=== PATIENT | male | born 1995 | race Caucasian/White ===

== ENCOUNTER 2024-12-16 15:10 | Emergency (ER) | payer OTHER, SELFPAY ==
--- NOTE | ~2024-12-16 | XR_ITS ---
CHEST RADIOGRAPH, PA AND LATERAL CLINICAL HISTORY: cough/sob x1.5 weeks . COMPARISON: 12/12/2023 TECHNIQUE: PA and lateral views of the chest. FINDINGS The cardiomediastinal silhouette is unremarkable. The lungs are clear. Visualized osseous structures and soft tissues are unremarkable. IMPRESSION: No focal infiltrate or effusion. Reviewed, dictated and finalized at location A. APY AIDE
--- NOTE | 2024-12-16 15:13 | ED_ITS ---
HPI - URI/Sore Throat General Chief Complaint: Upper Respiratory Infection Stated Complaint: COUGH Time Seen by Provider: 12/16/24 15:17 Source: patient Mode of arrival: ambulatory Limitations: no limitations History of Present Illness HPI Narrative: Aminata is a 28-year-old male patient presenting to the clinic today with complaints of a cough and some shortness of breath x1 0.5 weeks. He reports he had fever, chills, body aches initially with the symptoms however that has all subsided but is having a lingering cough and periods of shortness of breath with activity. Denies any chest pain. Cough is nonproductive at this time MD elicited complaint: cough and other (Shortness of breath on exertion) Related Data Allergies Allergy/AdvReac Type Severity Reaction Status Date / Time codeine Allergy Hives Verified 12/16/24 15:18 vancomycin Allergy Hives Verified 12/16/24 15:18 Review of Systems Review of Systems: Pertinent positives per HPI. Patient denies any fever, chills, rash, headache, visual changes, dizziness, chest pain, palpitations, nausea, vomiting, diarrhea, constipation, abdominal pain, or any urinary issues. 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 There is no relevant family history pertinent to the patient complaint. Exam Narrative: General: Well-developed, well nourished, in no apparent distress Head: Normocephalic, atraumatic Eyes: Pupils equally round and reactive to light bilaterally, EOM intact, sclera and conjunctive clear, no discharge, lids normal Ears: TMs intact and clear, ear canals clear, no drainage, grossly hearing normal. Nose: Nares patent, no discharge, no inflammation, no sinus tenderness. Mouth: Oral pharynx without lesions or masses, good dentition, MMM. Neck: Supple, trachea midline, no enlargement of anterior or posterior cervical nodes, no thyroid masses or goiter palpable. Cardio: Regular rate and rhythm, s1 and s2 normal, no murmur appreciated. Resp: Lower lobes diminished otherwise clear, no rhonchi, rales, wheezing or rubs Course Course Emergency Course: Portions of this record may have been created with voice recognition software. Level of Care: Express Care Visit Vital Signs Vital signs: Vital Signs Temperature 36.8 C 12/16/24 15:19 Pulse Rate 97 12/16/24 15:19 Respiratory Rate 16 12/16/24 15:19 Blood Pressure 152/93 H 12/16/24 15:19 Pulse Oximetry 99 12/16/24 15:19 Temperature 36.8 C 12/16/24 15:19 Pulse Rate 97 12/16/24 15:19 Respiratory Rate 16 12/16/24 15:19 Blood Pressure 152/93 H 12/16/24 15:19 Pulse Oximetry 99 12/16/24 15:19 Oxygen Delivery Room Air 12/16/24 15:33 Vital signs reviewed MDM - URI/Sore Throat MDM Narrative Medical decision making narrative: At the time of visit patient is resting comfortably on the exam table. Patient appears to be nontoxic. Diagnostics: Chest x-ray was performed and is negative for any acute cardiopulmonary process. Plan: I suspect patient has postviral cough. Will send in prescription for albuterol inhaler and prednisone. Supportive measures were discussed with the patient and they voiced understanding discharge instructions and agrees to treatment plan. Return precautions reviewed Differential Diagnosis Differential diagnosis: Likely upper respiratory infection, otitis media, sinusitis, viral infection, bronchitis, influenza, pharyngitis and other (COVID) Imaging Data Radiologist's impression: ITS Impressions Chest X-Ray 12/16/24 15:43 IMPRESSION: No focal infiltrate or effusion. Discharge Plan Discharge Clinical Impression: Post-viral cough syndrome Patient Disposition: Home, Self-Care Condition: Stable Instructions: Antibiotic Form, Acute Cough (ED) Additional Instructions: Chest x-rays negative for any acute cardiopulmonary process. Take prescription medications only as prescribed-albuterol inhaler and prednisone Increase fluids and stay well hydrated Tylenol/motrin for pain/fever Flonase and OTC antihistamines as directed Vicks vapor rub to open sinuses Sinus rinses for congestion Cepacol spray, cough drops, throat lozenges, warm tea with honey/lemon, gargle salt water to soothe throat BRAT diet for diarrhea Clear liquids x 24 hours then advance as tolerated for nausea/vomiting Go to the ED if you develop a worsening in your condition- high fever not controlled by Tylenol or Motrin, dehydration, weakness, lethargy, shortness of breath, or chest pain. Follow up with your PCP in 3-5 days if symptoms persist. Patient Language: Citizen Of [place] Prescriptions: New prednisone 20 mg tablet 40 mg PO DAILY 5 Days Qty: 10 0RF albuterol sulfate 90 mcg/actuation HFA aerosol inhaler 2 puff inhalation Q4-6H PRN (Reason: shortness of breath or wheezing) 30 Days Qty: 8.5 0RF Follow-up/Referrals: PHYSICIAN,JUVENILE JUSTICE SPECIALIST [Primary Care Provider] - Time of Disposition: 15:58 Quality NIHSS Nursing Documentation ED NIHSS nursing documentation: reviewed/agree
[2024-12-16 15:19] VITALS: BP 152/93; PULSE 97; RESP 16; TEMP 36.8; O2SAT 99
== END 2024-12-16 16:07 | disposition home or self-care (01) ==
PROVIDERS: Emergency Provider Nurse Practitioner Family
DX: R05.8 Other specified cough (principal)
CPT/HCPCS: 71046; 99213; G0463

== ENCOUNTER 2025-01-04 14:37 | Emergency (ER) | payer OTHER, SELFPAY ==
--- NOTE | 2025-01-04 14:42 | ED_ITS ---
HPI - Neck Pain/Injury General Chief Complaint: Neck Pain/Injury Stated Complaint: Neck Pain Time Seen by Provider: 01/04/25 14:43 Source: patient Mode of arrival: ambulatory Limitations: no limitations History of Present Illness HPI Narrative: Aminata is a 29-year-old male patient presenting to the clinic today with complaints of right-sided neck pain x2 days. He reports he woke up with the right-sided neck pain 2 days ago. Is having pain with turning his head side to side as well as hyper extending and flexing the neck. Denies any known injury. Feels as though the muscle is tight. He denies any radiation of pain down the right arm Related Data Allergies Allergy/AdvReac Type Severity Reaction Status Date / Time codeine Allergy Hives Verified 01/04/25 14:44 vancomycin Allergy Hives Verified 01/04/25 14:44 Review of Systems Review of Systems: Pertinent positives per HPI. Patient denies any fever, chills, rash, headache, visual changes, dizziness, cough, shortness of breath, chest pain, palpitations, nausea, vomiting, diarrhea, constipation, abdominal pain, or any urinary issues. 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 There is no relevant family history pertinent to the patient complaint. Exam Narrative: General: Well-developed, well nourished, in no apparent distress Head: Normocephalic, atraumatic. Cardio: Regular rate and rhythm, s1 and s2 normal, no murmur appreciated. Resp: Clear to auscultation bilaterally, no rhonchi, rales, wheezing or rubs. Musculoskeletal: No deformity, tender to palpation over the right trapezius portion of the neck, pain with turning head side to side against resistance, limited range of motion of the neck due to pain, muscle strength strong and equal, peripheral pulse strong, no edema, no cyanosis, normal gait and station Course Course Emergency Course: Portions of this record may have been created with voice recognition software. Level of Care: Express Care Visit Vital Signs Vital signs: Vital Signs Temperature 36.9 C 01/04/25 14:43 Pulse Rate 89 01/04/25 14:43 Respiratory Rate 18 01/04/25 14:43 Blood Pressure 143/98 H 01/04/25 14:43 Pulse Oximetry 100 01/04/25 14:43 Oxygen Delivery Room Air 01/04/25 14:43 Temperature 36.9 C 01/04/25 14:43 Pulse Rate 89 01/04/25 14:43 Respiratory Rate 18 01/04/25 14:43 Blood Pressure 143/98 H 01/04/25 14:43 Pulse Oximetry 100 01/04/25 14:43 Oxygen Delivery Room Air 01/04/25 14:43 Vital signs reviewed MDM - Neck Pain/Injury MDM Narrative Medical decision making narrative: At the time of visit patient is resting comfortably on the exam table. Patient appears to be nontoxic. Plan: I suspect patient has a right cervical muscle strain. Prescription for Flexeril and Medrol Dosepak was sent to the pharmacy. Supportive measures were discussed with the patient and they voiced understanding discharge instructions and agrees to treatment plan. Return precautions reviewed Differential Diagnosis Differential diagnosis: Likely disc disorder of cervical region, whiplash injury to neck, closed subluxation of cervical spine, fracture of cervical spine without lesion of spinal cord, cervical radiculopathy, vertebral artery dissection, torticollis, cervical spondylosis and strain of neck muscle Discharge Plan Discharge Clinical Impression: Strain of neck muscle Qualifiers: Encounter type: initial encounter Qualified Code(s): S16.1XXA - Strain of muscle, fascia and tendon at neck level, initial encounter Patient Disposition: Home, Self-Care Condition: Stable Instructions: Antibiotic Form, Neck Pain (ED) Additional Instructions: Take any prescription medication only as prescribed-cyclobenzaprine and Medrol Dosepak Be mindful of sedation precautions given to you if taking a muscle relaxer. May use heat or ice to the affected area Consider massage or chiropractor adjustment if this was discussed with provider May use blue emu, lidocaine patches, or asper cream to affected area- do not apply heat or ice directly over cream- can cause burn. Complete appropriate back stretching exercises. Follow up with your PCP in 3-5 days if symptom persist. Patient Language: Guamanian Prescriptions: New methylprednisolone [Medrol (Femi)] 4 mg tablets,dose pack See Rx Instructions PO .COMPLEX Qty: 21 0RF Rx Instructions: orally per package directions cyclobenzaprine 10 mg tablet 10 mg PO Q8H PRN (Reason: muscle spasm) 7 Days Qty: 21 0RF No Action albuterol sulfate 90 mcg/actuation HFA aerosol inhaler 2 puff inhalation Q4-6H PRN (Reason: shortness of breath or wheezing) 30 Days Qty: 8.5 0RF Follow-up/Referrals: PHYSICIAN,SALES CLERK FOOD [Primary Care Provider] - Stand Alone Forms: Work/School Release IP Time of Disposition: 14:54 Quality NIHSS Nursing Documentation ED NIHSS nursing documentation: reviewed/agree
[2025-01-04 14:43] VITALS: BP 143/98; PULSE 89; RESP 18; TEMP 36.9; O2SAT 100
== END 2025-01-04 15:05 | disposition home or self-care (01) ==
PROVIDERS: Emergency Provider Nurse Practitioner Family
DX: S16.1XXA Strain of muscle, fascia and tendon at neck level, initial encounter (principal); X58.XXXA Exposure to other specified factors, initial encounter
CPT/HCPCS: 99213; G0463

== ENCOUNTER 2025-01-05 04:17 | Emergency (ER) | payer OTHER, SELFPAY ==
[2025-01-05 04:19] VITALS: BP 153/89; PULSE 98; RESP 18; TEMP 36.6; O2SAT 98
--- OUTSIDE RECORDS SUMMARY | 2025-01-05 04:20 | XMS_ITS | Referral Summary ---
Author Organization [facility] Address [address] [place] [address] Care Team Providers Care Last Inserter Name Role Phone Unavailable Primary Care Provider Unavailabl e Source Comments [facility],non-owned Affiliates and Associated Physician Practices is amultiple site organization consisting of ambulatory clinics and hospital sitesin [place], [place], [place] and [place]. This disclosure is being madepursuant to the Care Everywhere program and may not contain all information available regarding this patient. Last updated 18.[facility] [employer] Allergies Active Allergy Reactions Criticality Noted Date Comments Codeine Urticaria,Swelling Medium 05/06/2023 Vancomycin Urticaria,Swelling Medium 05/06/2023 Medications * Be aware that medications may not be up to date on this document. Alwaysverify current medications with the patient. Medication Sig Dispensed Refills Start Date End Date Status albuterol HFA (ProAir HFA) 108 (90 Base) MCG/ACT inhaler Inhale 2 (two) puffs by mouth every 4 hours as needed 8.5 g 12/02/2023 Active Social History Tobacco Use Types Packs/Day Years Used Date Smoking Tobacco: Never Assessed Sex and Gender Information Value Date Recorded Sex Assigned at Not on file Gender Identity Not on file Sexual Orientation Not on file Last Filed Vital Signs Vital Sign Reading Time Taken Comments Blood Pressure 132/88 12/02/2023 10:06 AM PHOTOGRAPHER NEWS Pulse 88 12/02/2023 10:06 AM PHOTOGRAPHER NEWS Temperature 36.4 C (97.5 F) 12/02/2023 10:06 AM PHOTOGRAPHER NEWS Respiratory Rate 18 12/02/2023 10:06 AM PHOTOGRAPHER NEWS Oxygen Saturation 98% 12/02/2023 10:06 AM PHOTOGRAPHER NEWS Inhaled Oxygen Concentration - - Weight 119.7 kg (264 lb) 12/02/2023 10:06 AM PHOTOGRAPHER NEWS Height - - Body Mass Index - - Plan of Treatment Not on file
--- OUTSIDE RECORDS SUMMARY | 2025-01-05 04:20 | XMS_ITS | Clinical Summary ---
Author Organization [facility] [employer] Address [address] [place] [address] Care Team Providers Care Procedure Rn Name Role Phone Unavailable Primary Care Provider Unavailabl e Source Comments [facility],non-owned Affiliates and Associated Physician Practices is amultiple site organization consisting of ambulatory clinics and hospital sitesin [place], [place], [place] and [place]. This disclosure is being madepursuant to the Care Everywhere program and may not contain all information available regarding this patient. Last updated 18.[facility] [employer] Allergies Active Allergy Reactions Criticality Noted Date [...] Comments Blood Pressure 132/88 12/02/2023 10:06 AM HEAD CHAR FILTER TANK TENDER Pulse 88 12/02/2023 10:06 AM HEAD CHAR FILTER TANK TENDER Temperature 36.4 C (97.5 F) 12/02/2023 10:06 AM HEAD CHAR FILTER TANK TENDER Respiratory Rate 18 12/02/2023 10:06 AM HEAD CHAR FILTER TANK TENDER Oxygen Saturation 98% 12/02/2023 10:06 AM HEAD CHAR FILTER TANK TENDER Inhaled Oxygen Concentration - - Weight 119.7 kg (264 lb) 12/02/2023 10:06 AM HEAD CHAR FILTER TANK TENDER Height - - Body Mass Index - - Plan of Treatment Health Maintenance Due Date Last Done Comments HIV SCREENING 2009 HEPATITIS C SCREENING 12/14/2012 DTAP/TDAP/TD VACCINES (1 - Tdap) 2013 HEPATITIS B VACCINE (1 of 3 - 19+ 3-dose series) 2013 COVID-19 VACCINE (2 - 2023-2 5 season) 2024 08/13/2022 INFLUENZA VACCINE (#1) 2024 08/24/2022 DEPRESSION SCREENING 11/18/2024 ZOSTER VACCINE (1 of 2) 2044 HIB VACCINE Aged Out No longer eligi ble based on patient's age to complete this topic HPV VACCINE Aged Out No longer eligi ble based on patient's age to complete this topic MENINGOCOCCAL (Group B) VACCINE Aged Out No longer eligible based on patient's age to complete this topic MENINGOCOCCAL VACCINE Aged Out No brenda janeen eligible based on patient's age to complete this topic PNEUMOCOCCAL VACCINE Aged Out No long er eligible based on patient's age to complete this topic
--- OUTSIDE RECORDS SUMMARY | 2025-01-05 04:20 | XMS_ITS | Patient Health Summary ---
Author Organization [facility] Address [address] [place] [address] Care Team Providers Care Toddler Guide Name Role Phone Unavailable Primary Care Provider Unavailabl e Note from [facility],non-owned Affiliates and Associated Physician Practices is amultiple site organization consisting of ambulatory clinics and hospital sitesin [place], [place], [place] and [place]. This disclosure is being madepursuant to the Care Everywhere program and may not contain all information available regarding this patient. Last updated 18.[facility] Allergies * Codeine(Urticaria,Swelling) -Medium Criticality * Vancomycin(Urticaria,Swelling) -Medium Criticality Medications * Be aware that medications may not be up to date on this document. Alwaysverify current medications with the patient. * albuterol HFA (ProAir HFA) 108 (90 Base) MCG/ACT inhaler(Started 12/02/2023) Inhale 2 (two) puffs by mouth every 4 hours as needed Social History Tobacco Use Types Packs/Day Years Used Date Smoking Tobacco: Never Assessed Sex and Gender Information Value Date Recorded Sex Assigned at Not on file Gender Identity Not on file Sexual Orientation Not on file Last Filed Vital Signs Vital Sign Reading Time Taken Comments Blood Pressure 132/88 12/02/2023 10:06 AM AIR EXPORT AGENT Pulse 88 12/02/2023 10:06 AM AIR EXPORT AGENT Temperature 36.4 C (97.5 F) 12/02/2023 10:06 AM AIR EXPORT AGENT Respiratory Rate 18 12/02/2023 10:06 AM AIR EXPORT AGENT Oxygen Saturation 98% 12/02/2023 10:06 AM AIR EXPORT AGENT Inhaled Oxygen Concentration - - Weight 119.7 kg (264 lb) 12/02/2023 10:06 AM AIR EXPORT AGENT Height - - Body Mass Index - -
--- OUTSIDE RECORDS SUMMARY | 2025-01-05 04:45 | XMS_ITS | Patient Health Summary ---
Author Organization [facility] Address [address] [place] [address] Care Team Providers Care Crew Supervisor Name Role Phone Unavailable Primary Care Provider Unavailabl e Note from [facility],non-owned Affiliates and Associated Physician Practices is amultiple site organization consisting of ambulatory clinics and hospital sitesin [place], [place], [place] and [place]. This disclosure is being madepursuant to the Care Everywhere program and may not contain all information available regarding this patient. Last updated 18.[facility] Allergies * Codeine(Urticaria,Swelling) -Medium [...] Comments Blood Pressure 132/88 12/02/2023 10:06 AM TEACHER EARLY CHILDHOOD DEVELOPMENT Pulse 88 12/02/2023 10:06 AM TEACHER EARLY CHILDHOOD DEVELOPMENT Temperature 36.4 C (97.5 F) 12/02/2023 10:06 AM TEACHER EARLY CHILDHOOD DEVELOPMENT Respiratory Rate 18 12/02/2023 10:06 AM TEACHER EARLY CHILDHOOD DEVELOPMENT Oxygen Saturation 98% 12/02/2023 10:06 AM TEACHER EARLY CHILDHOOD DEVELOPMENT Inhaled Oxygen Concentration - - Weight 119.7 kg (264 lb) 12/02/2023 10:06 AM TEACHER EARLY CHILDHOOD DEVELOPMENT Height - - Body Mass Index - -
--- OUTSIDE RECORDS SUMMARY | 2025-01-05 04:45 | XMS_ITS | Referral Summary ---
Author Organization [facility] Address [address] [place] [address] Care Team Providers Care Collar Baster Jumpbasting Name Role Phone Unavailable Primary Care Provider Unavailabl e Source Comments [facility],non-owned Affiliates and Associated Physician Practices is amultiple site organization consisting of ambulatory clinics and hospital sitesin [place], [place], [place] and [place]. This disclosure is being madepursuant to the Care Everywhere program and may not contain all information available regarding this patient. Last updated 18.[facility] [employer] Allergies Active Allergy Reactions Criticality Noted Date [...] Comments Blood Pressure 132/88 12/02/2023 10:06 AM HOURLY TEAM MEMBERS Pulse 88 12/02/2023 10:06 AM HOURLY TEAM MEMBERS Temperature 36.4 C (97.5 F) 12/02/2023 10:06 AM HOURLY TEAM MEMBERS Respiratory Rate 18 12/02/2023 10:06 AM HOURLY TEAM MEMBERS Oxygen Saturation 98% 12/02/2023 10:06 AM HOURLY TEAM MEMBERS Inhaled Oxygen Concentration - - Weight 119.7 kg (264 lb) 12/02/2023 10:06 AM HOURLY TEAM MEMBERS Height - - Body Mass Index - - Plan of Treatment Not on file
--- OUTSIDE RECORDS SUMMARY | 2025-01-05 04:45 | XMS_ITS | Clinical Summary ---
Author Organization [facility] [employer] Address [address] [place] [address] Care Team Providers Care Width Stripper Name Role Phone Unavailable Primary Care Provider Unavailabl e Source Comments [facility],non-owned Affiliates and Associated Physician Practices is amultiple site organization consisting of ambulatory clinics and hospital sitesin [place], [place], [place] and [place]. This disclosure is being madepursuant to the Care Everywhere program and may not contain all information available regarding this patient. Last updated 18.[facility] [employer] Allergies Active Allergy Reactions Criticality Noted Date [...] Comments Blood Pressure 132/88 12/02/2023 10:06 AM CW OPERATOR Pulse 88 12/02/2023 10:06 AM CW OPERATOR Temperature 36.4 C (97.5 F) 12/02/2023 10:06 AM CW OPERATOR Respiratory Rate 18 12/02/2023 10:06 AM CW OPERATOR Oxygen Saturation 98% 12/02/2023 10:06 AM CW OPERATOR Inhaled Oxygen Concentration - - Weight 119.7 kg (264 lb) 12/02/2023 10:06 AM CW OPERATOR Height - - Body Mass Index - [...]
--- NOTE | 2025-01-05 05:04 | ED_ITS ---
HPI - General Adult General Chief complaint: Neck Pain/Injury Stated complaint: Neck pain x 2days Time Seen by Provider: 01/05/25 04:30 History of Present Illness HPI narrative: This is a 29-year-old male presenting ED with a chief neck pain. Patient says he developed a crack in the right side of his neck several days ago. He has been getting progressively worse. He was seen at an urgent care and was prescribed muscle relaxers and steroids ovaries not take steroids yet. Patient does not have any radiating pain down his arm. No trauma. No neurologic doses. 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 Head: atraumatic. EYES: EOMI, NOSE: Atraumatic NECK: Tenderness to palpation over the right paracervical muscles, no midline tenderness, pain with active and passive range of motion RESPIRATORY: No increased rate of breathing CARDIOVASCULAR: RRR, ABDOMINAL: Non-distended MUSCULOSKELETAl: Focal exam of the right arm shows is neurovascularly intact NEURO: Alert. Moving 4/4 extremities SKIN:: Warm, dry. Normal color PSYCHIATRIC: Normal affect Course Vital Signs Vital signs: Vital Signs Temperature 97.9 F 01/05/25 04:19 Pulse Rate 98 01/05/25 04:19 Respiratory Rate 18 01/05/25 04:19 Blood Pressure 153/89 H 01/05/25 04:19 Pulse Oximetry 98 01/05/25 04:19 Oxygen Delivery Room Air 01/05/25 04:19 Temperature 97.9 F 01/05/25 04:19 Pulse Rate 98 01/05/25 04:19 Respiratory Rate 18 01/05/25 04:19 Blood Pressure 153/89 H 01/05/25 04:19 Pulse Oximetry 98 01/05/25 04:19 Oxygen Delivery Room Air 01/05/25 04:19 Medical Decision Making MDM Narrative Medical decision making narrative: -Course: 29-year-old male presenting with right-sided neck pain. No concerning findings on history and physical. Given symptomatic treatment and discharged. -DDX includes but is not limited to: Muscle strain, muscle spasm Vital Signs Vital Signs: Vital Signs Temperature 97.9 F 01/05/25 04:19 Pulse Rate 98 01/05/25 04:19 Respiratory Rate 18 01/05/25 04:19 Blood Pressure 153/89 H 01/05/25 04:19 Pulse Oximetry 98 01/05/25 04:19 Oxygen Delivery Room Air 01/05/25 04:19 Temperature 97.9 F 01/05/25 04:19 Pulse Rate 98 01/05/25 04:19 Respiratory Rate 18 01/05/25 04:19 Blood Pressure 153/89 H 01/05/25 04:19 Pulse Oximetry 98 01/05/25 04:19 Oxygen Delivery Room Air 01/05/25 04:19 Discharge Plan Discharge Clinical Impression: Strain of neck muscle Patient Disposition: Home, Self-Care Condition: Stable Instructions: Antibiotic Form, Cervical Strain (ED) Additional Instructions: Please use Motrin Tylenol and cyclobenzaprine for your neck pain. You could also try heat packs. Please follow-up your primary care physician as needed. Return if her pain becomes unbearable. Patient Language: [place] Prescriptions: No Action albuterol sulfate 90 mcg/actuation HFA aerosol inhaler 2 puff inhalation Q4-6H PRN (Reason: shortness of breath or wheezing) 30 Days Qty: 8.5 0RF methylprednisolone [Medrol (Femi)] 4 mg tablets,dose pack See Rx Instructions PO .COMPLEX Qty: 21 0RF Rx Instructions: orally per package directions cyclobenzaprine 10 mg tablet 10 mg PO Q8H PRN (Reason: muscle spasm) 7 Days Qty: 21 0RF Follow-up/Referrals: PHYSICIAN NOT ON STAFF,NONSTAFF [Primary Care Provider] -
[2025-01-05] MEDS: ACETAMINOPHEN 500 MG TABLET 1000 MG PO (05:11)
[2025-01-05] MEDS: KETOROLAC 30 MG/ML VIAL (*BKC) IM (05:12)
[2025-01-05] MEDS: dexAMETHasone SOD PHOS INJ 10 MG/ML 1 ML VIAL IM (05:13)
[2025-01-05] MEDS: diazePAM INJ (*CRX) 10 MG/2 ML SYRINGE 5 MG IM (05:13)
== END 2025-01-05 05:41 | disposition home or self-care (01) ==
PROVIDERS: Emergency Provider Emergency Medicine
DX: S16.1XXA Strain of muscle, fascia and tendon at neck level, initial encounter (principal); X58.XXXA Exposure to other specified factors, initial encounter
CPT/HCPCS: 96372; 99284; A9270; J1100; J1885; J3360